=== PATIENT | female | born 1985 | race Hispanic/Latino ===

== ENCOUNTER 2022-03-28 06:56 | Day surgery (SDC) | payer BC ==
[2022-03-26 15:28] VITALS: BP 132/74
[2022-03-26 15:40] LABS: BASOPHILS % (AUTO) 0.8 % (0.0-5.0); EOSINOPHILS % (AUTO) 1.2 % (0.0-8.0); HEMATOCRIT 33.9 % (36-48); LYMPHOCYTES % (AUTO) 32.2 % (21.0-51.0); MEAN CORPUSCULAR HEMOGLOBIN 25.7 pg (27.0-33.0); MEAN CORPUSCULAR HGB CONC 32.2 g/dL (32.0-36.0); MONOCYTES % (AUTO) 6.4 % (3.0-13.0); NEUTROPHILS % (AUTO) 59.1 % (40.0-77.0); PLATELET COUNT (AUTO) 373 K/uL (130-400); RED BLOOD CELL COUNT(AUTO) 4.24 MIL/uL (4.00-5.50); RED CELL DISTRIBUTION WIDTH 14.1 % (11.0-15.5); WHITE BLOOD COUNT (AUTO) 6.6 K/uL (4.8-10.8)
[2022-03-26 15:51] LABS: CREATININE 0.6 mg/dL (0.5-1.5); POTASSIUM 3.5 mmol/L (3.5-5.1)
[2022-03-28] VITALS (16 sets, daily range): BP systolic 102–142; BP diastolic 50–82
[~2022-03-28] VITALS: Ht 142.2 cm; Wt 69.0 kg
[~2022-03-28 06:56] MED LIST: TAMS-1 PO
[2022-03-28] MEDS ORDERED: LACTATED RINGERS 1000ML 1,000 ML IV ONE (07:22)
[2022-03-28] MEDS: CEFTRIAXONE 1G VIAL IVPB SCH ×2 (07:30→08:00)
[2022-03-28] MEDS ORDERED: PROPOFOL 10 MG/ML 20ML VIAL IV ONE (07:59)
[2022-03-28] MEDS ORDERED: MIDAZOLAM HCL 1 MG/ML 2ML VIAL ONE (07:59)
[2022-03-28] MEDS ORDERED: ROCURONIUM 10MG/1ML SYR 10 MG/ML ML ONE (07:59)
[2022-03-28] MEDS ORDERED: FENTANYL CITRATE PF 50 MCG/1 ML 2ML VIAL ONE (07:59)
[2022-03-28] MEDS ORDERED: IOHEXOL-350 50ML VIAL IV ONE (08:04)
[2022-03-28] MEDS ORDERED: PHENAZOPYRIDINE HCL 200 MG TABLET ONE (10:36)
== END 2022-03-28 11:00 | disposition home or self-care (01) ==
LOC: DAH 06:56
PROVIDERS: ATTEND Urology
DX: N13.2 Hydronephrosis with renal and ureteral calculous obstruction (principal); Z20.822 Contact with and (suspected) exposure to COVID-19; E66.9 Obesity, unspecified; Z79.899 Other long term (current) drug therapy; Z98.890 Other specified postprocedural states
CPT/HCPCS: 80048; 84703; 85025; 87426; 36415 ×2; 52356; 82360; 74018; 74420; A6260; C2617; C1769 ×2; A4354; C1758; J7120; J3010; J0696; J2250; J2704; Q9967; A4358; C1726; A4215; A4223; A4222; A4221; A4663; A4600; A4510